=== PATIENT | male | born 1970 | race Caucasian/White ===

== ENCOUNTER 2016-08-21 04:34 | Observation (INO) | payer MEDICAID, OTHER ==
[~2016-08-21] VITALS: Ht 180.3 cm; Wt 65.0 kg
[2016-08-21] VITALS (8 sets, daily range): BP systolic 130–160; BP diastolic 82–100; PULSE 68–102; RESP 18–22; TEMP 96.9–98.3; O2SAT 95–100
[~2016-08-21 04:34] MED LIST: DIAZ5 PO; DILA4TAB10 PO; DOXY100T PO; SOMA350T PO; VENTAER INH
[2016-08-21] MEDS ORDERED: KETOROLAC TROMETHAMINE 60 MG/2 ML (IM) VIAL IM ONE (05:15)
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
--- NOTE | 2016-08-21 05:58 | RADRPT ---
EXAM DATE/TIME: 08/21/2016 05:34 [facility] COMPARISON: No previous studies available for comparison. INDICATIONS : Chest pain. MEDICAL HISTORY : None. SURGICAL HISTORY : None. ENCOUNTER: Initial ACUITY: 1 day PAIN SCORE: 5/10 LOCATION: Bilateral chest FINDINGS: A single view of the chest demonstrates the lungs to be symmetrically aerated without evidence of mas s, infiltrate or effusion. The cardiomediastinal contours are unremarkable. Osseous structures are intact. CONCLUSION: No acute disease. Timothy Trujillo MD on August 21, 2016 at 5:56 Board Certified Radiologist. This report was verified electronically.
--- NOTE | 2016-08-21 06:03 | RADRPT ---
EXAM DATE/TIME: 08/21/2016 05:35 [facility] COMPARISON: No previous studies available for comparison. INDICATIONS : Left shoulder pain. No known injury. MEDICAL HISTORY : None. SURGICAL HISTORY : None. ENCOUNTER: Initial ACUITY: >1 year PAIN SCORE: 10/10 LOCATION: Left upper extremity FINDINGS: AP views of the left shoulder were obtained with internal and external rotation as well as Y. view of scapula. This demonstrates patchy sclerosis and lucency involving the upper humeral head. The glenoh umeral joint and acromioclavicular joint are intact. The soft tissues are unremarkable. CONCLUSION: Abnormal appearance of the upper humeral head with sclerosis and patchy lucency. This is nonspecific and could be the sequelae of remote trauma. Comparison with old outside studies would be helpful. Timothy Trujillo MD on August 21, 2016 at 6:00 Board Certified Radiologist. This report was verified electronically.
[2016-08-21] MEDS ORDERED: VANCOMYCIN INJ 1,000 MG in SODIUM CHLOR 0.9% 250 ML INJ 250 ML IV ONE (06:30)
[2016-08-21] MEDS ORDERED: SODIUM CHLOR 0.9% 1000 ML INJ 1,000 ML IV ONE ×2 (06:30→07:30)
[2016-08-21] MEDS ORDERED: MORPHINE SULFATE 4 MG/ML INJ IV PUSH ONE (06:30)
[2016-08-21] MEDS ORDERED: PIPERACIL-TAZO 3.375 GM PREMIX 50 ML IV ONE (06:30)
[2016-08-21] MEDS ORDERED: ONDANSETRON HCL 4 MG/2 ML VIAL IV ONE (06:30)
[2016-08-21 06:50] LABS: AUTOMATED NEUTROPHIL # 8.4 TH/MM3 (1.8-7.7); BASOPHIL % 0.4 % (0.0-2.0); EOSINOPHIL # 0.1 TH/MM3 (0-0.4); EOSINOPHIL % 0.6 % (0.0-4.0); HEMATOCRIT 35.4 % (39.0-51.0); HEMO FLAGS DIFF FINAL; LYMPH % 12.6 % (9.0-44.0); LYMPHOCYTE # 1.3 TH/MM3 (1.0-4.8); MEAN CELL VOLUME 88.2 FL (80.0-100.0); MEAN CORPUSCULAR HEMOGLOBIN 30.8 PG (27.0-34.0); MEAN CORPUSCULAR HGB CONC 34.9 % (32.0-36.0); MONO % 6.3 % (0.0-8.0); NEUT % 80.1 % (16.0-70.0); PLATELET COUNT 152 TH/MM3 (150-450); RED BLOOD COUNT 4.02 MIL/MM3 (4.50-5.90); RED CELL DISTRIBUTION WIDTH 16.4 % (11.6-17.2); WHITE BLOOD COUNT 10.5 TH/MM3 (4.0-11.0)
[2016-08-21 06:59] LABS: ALT (GPT) 16 U/L (12-78); ANION GAP 8 MEQ/L (5-15); AST (GOT) 15 U/L (15-37); BICARBONATE 25.3 MEQ/L (21.0-32.0); BLOOD UREA NITROGEN 13 MG/DL (7-18); CHLORIDE 104 MEQ/L (98-107); GLOMERULAR FILTRATION RATE 91 ML/MIN (>89); POTASSIUM 3.4 MEQ/L (3.5-5.1); SODIUM (NA) 137 MEQ/L (136-145)
[2016-08-21 07:01] LABS: ALKALINE PHOSPHATASE 53 U/L (45-117); TOTAL BILIRUBIN ADULT 0.6 MG/DL (0.2-1.0)
[2016-08-21 07:05] LABS: APTT (PATIENT) 29.2 SEC (24.3-30.1); INTERNATIONAL NORMALIZED RATIO 0.9 RATIO; PROTHROMBIN TIME - PATIENT 10.2 SEC (9.8-11.6)
--- NOTE | 2016-08-21 07:06 | RADRPT ---
EXAM DATE/TIME: 08/21/2016 06:32 This report includes an Addendum and supersedes previous reports for this exam. [facility] COMPARISON: No previous studies available for comparison. INDICATIONS : Left shoulder pain. Patient states he's been having pain for over a year. RADIATION DOSE: 15.33 CTDIvol (mGy) MEDICAL HISTORY : None SURGICAL HISTORY : None. ENCOUNTER: Initial ACUITY: >1 yr PAIN SCALE: 8/10 LOCATION: Left shoulder. TECHNIQUE: Volumetric scanning of the shoulder was performed. Using automated exposure control and adjustment o f the mA and/or kV according to patient size, radiation dose was kept as low as reasonably achievable to obtain optimal diagnostic quality images. FINDINGS: BONES: No evidence of fracture. Alignment is within normal limits. Chronic degenerative type changes are no gerardo involving the upper anterior humerus with multiple apparent subchondral cysts with sclerotic mary ins. There is patchy sclerosis as well. JOINTS: Minimal degenerative changes are present in the glenohumeral joint with slight spurring. SOFT TISSUES: Muscles, tendons, and neurovascular structures are grossly unremarkable. The integrity of the rotato r cuff tendons cannot be reliably evaluated on CT without intra-articular contrast. No evidence of m ass, organized fluid collection, or foreign body. CONCLUSION: 1. Chronic changes involving the humeral head with subchondral cyst formation and sclerosis. 2. Mild degenerative change in the glenohumeral joint. Timothy Trujillo MD on August 21, 2016 at 6:50 Board Certified Radiologist. This report was verified electronically. ADDENDUM: There is a small amount of air seen directly adjacent to the proximal humeral metaphysis. This is fel t to be just inferior to the joint space. I see no radiopaque foreign body. Differential diagnostic c onsiderations would include trauma with overlying wound versus infection with gas producing organisms . No abscess observed. Diego Vidal Jr., MD on August 21, 2016 at 7:45 Board Certified Radiologist. This report was verified electronically.
[2016-08-21] MEDS ORDERED: BISACODYL 10 MG SUPP RECTAL PRN (08:15)
[2016-08-21] MEDS ORDERED: KETOROLAC TROMETHAMINE 30 MG/ML (IVP) VIAL IVP PRN (08:15)
[2016-08-21] MEDS ORDERED: NALOXONE HCL 0.4 MG/ML AMP IV PRN (08:15)
[2016-08-21] MEDS ORDERED: ACETAMINOPHEN 325 MG TAB PO PRN ×2 (08:15)
[2016-08-21] MEDS ORDERED: ONDANSETRON HCL 4 MG/2 ML VIAL IVP PRN (08:15)
[2016-08-21] MEDS ORDERED: SODIUM CHLORIDE 0.9% FLUSH 10 ML FLUSH IV FLUSH PRN (08:15)
[2016-08-21] MEDS ORDERED: CLINDAMYCIN INJ 900 MG in SODIUM CHLORIDE 0.9% INJ 100 ML IV ONE (08:30)
[2016-08-21 08:34] LABS: LACTIC ACID GHOST NOT REPORTABLE
[2016-08-21] MEDS ORDERED: POTASSIUM CHLOR 20 MEQ PREMIX 100 ML IV ONE (09:00)
[2016-08-21] MEDS: SODIUM CHLORIDE 0.9% FLUSH 10 ML FLUSH IV FLUSH SCH ×2 (09:00→21:20)
[2016-08-21] MEDS: DOCUSATE SODIUM 100 MG CAP PO SCH ×2 (09:00→21:20)
[2016-08-21] MEDS ORDERED: Vancomycin Consult Pharmacy 1 EA OTHER SCH (09:30)
[2016-08-21] MEDS ORDERED: CLINDAMYCIN INJ 900 MG in SODIUM CHLORIDE 0.9% INJ 100 ML IV SCH (09:30)
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
[2016-08-21] MEDS: SODIUM CHLOR 0.9% 1000 ML INJ 1,000 ML IV SCH ×2 (10:01→23:18)
--- NOTE | 2016-08-21 10:24 | EKG ---
Date Performed: 08/21/2016 Time Performed: 05:02:22 PTAGE: 46 years EKG: SINUS TACHYCARDIA ABNORMAL RHYTHM ECG NO PREVIOUS TRACING DOCTOR: Garth Day Interpretating Date/Time 08/21/2016 10:19:26
--- NOTE | 2016-08-21 10:35 | PD ---
Data Data Last Documented VS Vital Signs Date Time Temp Pulse Resp B/P Pulse Ox O2 Delivery O2 Flow Rate FiO2 08/21/16 07:54 18 08/21/16 07:53 86 142/90 99 Room Air 08/21/16 04:35 98.3 Orders Ketorolac Inj (Toradol Inj) (08/21/16 05:15) Shoulder, Complete (>2vws) (08/21/16 05:24) Ice/Cold Pack (08/21/16 05:24) Chest, Single Ap (08/21/16 05:24) Complete Blood Count With Diff (08/21/16 06:16) Comprehensive Metabolic Panel (08/21/16 06:16) Prothrombin Time / Inr (Pt) (08/21/16 06:16) Act Partial Throm Time (Ptt) (08/21/16 06:16) Blood Culture (08/21/16 06:16) C-Reactive Protein (Crp) (08/21/16 06:16) Westergren Sedimentation Rate (08/21/16 06:16) Iv Access Insert/Monitor (08/21/16 06:16) Ecg Monitoring (08/21/16 06:16) Oximetry (08/21/16 06:16) Lactic Acid Sepsis Protocol (08/21/16 06:16) Ct Shoulder W/O Contrast (08/21/16 ) Sodium Chlor 0.9% 1000 Ml Inj (Ns 1000 M (08/21/16 06:30) Ondansetron Inj (Zofran Inj) (08/21/16 06:30) Morphine Inj (Morphine Inj) (08/21/16 06:30) Piperacil-Tazo 3.375 Gm Premix (Zosyn 3. (08/21/16 06:30) Vancomycin Inj (Vancomycin Inj) (08/21/16 06:30) Electrocardiogram (08/21/16 05:02) Sodium Chlor 0.9% 1000 Ml Inj (Ns 1000 M (08/21/16 07:30) Clindamycin Inj (Cleocin Inj) (08/21/16 08:30) Magnesium (Mg) (08/21/16 08:14) Basic Metabolic Panel (Bmp) (08/22/16 06:00) Complete Blood Count With Diff (08/22/16 06:00) Magnesium (Mg) (08/22/16 06:00) ^ Other Nursing Orders (08/21/16 08:14) Potassium Chlor 20 Meq Premix (Kcl 20 Me (08/21/16 09:00) Place In Observation (08/21/16 ) Vital Signs (Adult) Q4H (08/21/16 08:14) Activity Oob With Assistance (08/21/16 08:14) Intake + Output SAMINA.QSHIFT (08/21/16 08:14) Diet Npo (08/21/16 Breakfast) Sodium Chlor 0.9% 1000 Ml Inj (Ns 1000 M (08/21/16 09:00) Sodium Chloride 0.9% Flush (Ns Flush) (08/21/16 08:15) Sodium Chloride 0.9% Flush (Ns Flush) (08/21/16 09:00) Acetaminophen (Tylenol) (08/21/16 08:15) Ondansetron Inj (Zofran Inj) (08/21/16 08:15) Bisacodyl Supp (Dulcolax Supp) (08/21/16 08:15) Docusate Sodium (Colace) (08/21/16 09:00) Resp Oxygen Tyrel C Titrat 1-4 L (08/21/16 ) Pt Request For Service (08/21/16 08:14) Case Management Consult (08/21/16 08:14) Scd Bilateral/Knee High SAMINA.BID (08/21/16 08:14) Acetaminophen (Tylenol) (08/21/16 08:15) Ketorolac Inj (Toradol Inj) (08/21/16 08:15) Ketorolac Inj (Toradol Inj) (08/21/16 08:15) Morphine Inj (Morphine Inj) (08/21/16 08:15) Naloxone Inj (Narcan Inj) (08/21/16 08:15) Drug Screen, Random Urine (08/21/16 08:14) ^ Other Nursing Orders (08/21/16 08:14) Admit Order (Ed Use Only) (08/21/16 08:25) Labs Laboratory Tests Test 08/21/16 06:25 White Blood Count 10.5 TH/MM3 Red Blood Count 4.02 MIL/MM3 Hemoglobin 12.4 GM/DL Hematocrit 35.4 % Mean Corpuscular Volume 88.2 FL Mean Corpuscular Hemoglobin 30.8 PG Mean Corpuscular Hemoglobin 34.9 % Concent Red Cell Distribution Width 16.4 % Platelet Count 152 TH/MM3 Mean Platelet Volume 9.6 FL Neutrophils (%) (Auto) 80.1 % Lymphocytes (%) (Auto) 12.6 % Monocytes (%) (Auto) 6.3 % Eosinophils (%) (Auto) 0.6 % Basophils (%) (Auto) 0.4 % Neutrophils # (Auto) 8.4 TH/MM3 Lymphocytes # (Auto) 1.3 TH/MM3 Monocytes # (Auto) 0.7 TH/MM3 Eosinophils # (Auto) 0.1 TH/MM3 Basophils # (Auto) 0.0 TH/MM3 CBC Comment DIFF FINAL Differential Comment Erythrocyte Sedimentation Rate 62 mm/hr Prothrombin Time 10.2 SEC Prothromb Time International 0.9 RATIO Ratio Activated Partial 29.2 SEC Thromboplast Time Sodium Level 137 MEQ/L Potassium Level 3.4 MEQ/L Chloride Level 104 MEQ/L Carbon Dioxide Level 25.3 MEQ/L Anion Gap 8 MEQ/L Blood Urea Nitrogen 13 MG/DL Creatinine 0.89 MG/DL Estimat Glomerular Filtration 91 ML/MIN Rate Random Glucose 172 MG/DL Lactic Acid Level 2.4 mmol/L Calcium Level 8.8 MG/DL Magnesium Level 2.1 MG/DL Total Bilirubin 0.6 MG/DL Aspartate Amino Transf 15 U/L (AST/SGOT) Alanine Aminotransferase 16 U/L (ALT/SGPT) Alkaline Phosphatase 53 U/L C-Reactive Protein 6.00 MG/DL Total Protein 7.7 GM/DL Albumin 3.0 GM/DL [facility] Supervised Visit with FAUSTO: Yes Narrative Course I took over care of this patient from Dr. Lea. He's 46-year-old male who has a remote history of IV drug use. He is reporting severe left shoulder pain. He has pain on exam out of proportion to his physical exam findings. CT was performed which demonstrates a small pocket of air inferior to the joint. His inflammatory markers are elevated but he is nontoxic appearing. I spoke to Dr. Marino was on-call for orthopedics and requested that the patient have an arthrocentesis performed by interventional radiology. Pt. was started on broad spectrum antibiotics. I spoke to Dr. Vidal in interventional radiology who will perform the procedure. Physician Communication Physician Communication Discussed with Dr. Muhammad, Dr. Vidal and Dr. Marino Diagnosis Primary Impression: Left shoulder pain Qualified Code: M25.512 - Acute pain of left shoulder Admitting Information Admitting Physician Requests: Admit Romi Coelho MD August 21, 2016 10:35
[2016-08-21] MEDS: MORPHINE SULFATE 4 MG/ML INJ IV PRN ×2 (10:50→21:19)
[2016-08-21] MEDS: NICOTINE 21 MG/24 HR PATCH T-DERMAL SCH (11:51)
[2016-08-21] MEDS: PIPERACIL-TAZO 3.375 GM PREMIX 50 ML IV SCH ×2 (11:53→18:21)
[2016-08-21] MEDS: KETOROLAC TROMETHAMINE 30 MG/ML (IVP) VIAL IVP PRN ×2 (13:35→23:01)
--- NOTE | 2016-08-21 15:07 | PD.RAD ---
Post Procedure Progress Note Pre Procedure Diagnosis: (1) Left shoulder pain Post Procedure Diagnosis: (1) Left shoulder pain Procedure Date: August 21, 2016 Supervising Radiologist: Diego Vidal JR Proceduralist/Assist: RT Dee(R)() Anesthesia: Local Plan of Activity Patient to Unit: Nursing Unit Patient Condition: Good Additional Comments: Left shoulder aspiration yielded no fluid. 5ml sterile saline instilled into joint. 0.1ml returned. Sent for micro evaluation. See PACS Report for procedural detail/treatment Jr. Young,Diego De Leon MD August 21, 2016 15:07
[2016-08-21 16:46] LABS: WBC, SYNOVIAL FLUID 1 /MM3 (0-200)
[2016-08-21] MEDS: CLINDAMYCIN INJ 900 MG in SODIUM CHLORIDE 0.9% INJ 100 ML IV SCH (17:43)
--- NOTE | 2016-08-21 17:43 | RADRPT ---
EXAM DATE/TIME: 08/21/2016 14:51 [place] COMPARISON: No previous studies available for comparison. INDICATIONS : Patient with left shoulder pain with concern for septic arthritis and in need of joint aspiration. MEDICAL HISTORY : 1.Methamphetamine use. 2.Chronic leg pain 3.Tobacco abuse. 4.Pneumonia. SURGICAL HISTORY : Patient denies any past surgery. ENCOUNTER: Initial ACUITY: 4 - 6 days PAIN SCORE: 7/10 LOCATION: Left Shoulder FLUORO TIME: 0.81 minutes IMAGE SERIES: 0 DEVICE(S): 22 gauge needle was placed into the left shoulder joint. RESPONSE: Pre procedure pain level was 7/10 FLUID: Total volume of1 cc of clear red fluid was removed. Fluid specimen was submitted to the lab for evaluation. PROCEDURE : 1. Fluoroscopically guided left shoulder aspiration. The risks, benefits and alternatives to the procedure were explained and verbal and written consent w as obtained. The site was prepped in sterile fashion. Full sterile technique was used, including ca p, mask, sterile gloves and gown and a large sterile sheet. Hand hygiene and 2% chlorhexidine and/or betadine/alcohol prep was utilized per protocol for cutaneous antisepsis. The skin and subcutaneous tissues were infiltrated with local anesthetic solution. <Under fluoroscopic control a 22 gauge spinal needle was passed into the left shoulder joint. Aspirat ion yielded no fluid. 5 mL of sterile saline was instilled into the joint. Aspiration yielded 0.1 mL. This was placed in culture media>> The patient tolerated the procedure well and there were no complications. CONCLUSION: Uncomplicated aspiration of the left shoulder as above. Diego Vidal Jr., MD on August 21, 2016 at 17:30 Board Certified Radiologist. This report was verified electronically.
[2016-08-21] MEDS: VANCOMYCIN 1,000 MG/NS 250 ML IV SCH ×2 (21:20)
[2016-08-22] VITALS: BP 160/100; PULSE 88; RESP 20; TEMP 97; O2SAT 99
[2016-08-22] MEDS: PIPERACIL-TAZO 3.375 GM PREMIX 50 ML IV SCH ×3 (00:30→14:05)
[2016-08-22] MEDS: CLINDAMYCIN INJ 900 MG in SODIUM CHLORIDE 0.9% INJ 100 ML IV SCH ×2 (01:53→09:29)
[2016-08-22] MEDS: MORPHINE SULFATE 4 MG/ML INJ IV PRN ×3 (01:54→16:24)
[2016-08-22 04:00] VITALS: BP 151/91; PULSE 85; RESP 20; TEMP 98; O2SAT 98
[2016-08-22] MEDS: KETOROLAC TROMETHAMINE 30 MG/ML (IVP) VIAL IVP PRN ×2 (05:58→11:41)
[2016-08-22 07:24] VITALS: BP 131/86; PULSE 84; RESP 18; TEMP 98.5; O2SAT 96
[2016-08-22] MEDS: VANCOMYCIN 1,000 MG/NS 250 ML IV SCH ×2 (08:08)
[2016-08-22] MEDS ORDERED: REMOVE OLD NICOTINE PATCH T-DERMAL SCH (09:00)
[2016-08-22] MEDS: SODIUM CHLORIDE 0.9% FLUSH 10 ML FLUSH IV FLUSH SCH (09:00)
[2016-08-22] MEDS: DOCUSATE SODIUM 100 MG CAP PO SCH (09:28)
[2016-08-22] MEDS: NICOTINE 21 MG/24 HR PATCH T-DERMAL SCH (09:29)
--- NOTE | 2016-08-22 10:06 | HHI.PR ---
Subjective Remarks Follow up left shoulder pain. Patient states it is very painful and throbbing with any movement, he states the Toradol works the best. Denies any chest pain, sob, fever or chills. Objective Vitals Vital Signs Date Time Temp Pulse Resp B/P Pulse Ox O2 Delivery O2 Flow Rate FiO2 08/22/16 07:24 98.5 84 18 131/86 96 08/22/16 04:00 98.0 85 20 151/91 98 08/22/16 00:00 97.0 88 20 160/100 99 08/21/16 23:08 96.9 87 22 160/100 99 08/21/16 20:38 21 08/21/16 16:00 97.9 80 19 156/91 99 08/21/16 11:36 98.0 68 20 156/95 100 08/21/16 11:17 73 18 157/94 98 Room Air I/O 08/21/16 08/21/16 08/21/16 08/22/16 08/22/16 08/22/16 07:00 15:00 23:00 07:00 15:00 23:00 Intake Total 400 ml Output Total 700 ml 1800 ml Balance -700 ml -1400 ml Intake Oral 400 ml Output Urine Total 700 ml 1800 ml # Voids 1 # Bowel Movements 0 Result Diagram: 08/21/1662408/21/16624 Imaging Last Impressions Shoulder X-Ray 08/21/16523 Signed Impressions: Service Date/Time: Sunday, August 21, 2016 05:35 - CONCLUSION: Abnormal appearance of the upper humeral head with sclerosis and patchy lucency. This is nonspecific and could be the sequelae of remote trauma. Comparison with old outside studies would be helpful. Timothy Trujillo MD Chest X-Ray 08/21/16523 Signed Impressions: Service Date/Time: Sunday, August 21, 2016 05:34 - CONCLUSION: No acute disease. Timothy Trujillo MD Upper Extremity CT 08/21/16 0000 Signed Impressions: Service Date/Time: Sunday, August 21, 2016 06:32 - CONCLUSION: 1. Chronic changes involving the humeral head with subchondral cyst formation and sclerosis. 2. Mild degenerative change in the glenohumeral joint. Timothy Trujillo MD ADDENDUM: There is a small amount of air seen directly adjacent to the proximal humeral metaphysis. This is felt to be just inferior to the joint space. I see no radiopaque foreign body. Differential diagnostic considerations would include trauma with overlying wound versus infection with gas producing organisms. No abscess observed. Diego Vidal Jr., MD Aspiration 08/21/16 0000 Signed Impressions: Service Date/Time: Sunday, August 21, 2016 14:51 - CONCLUSION: Uncomplicated aspiration of the left shoulder as above. Diego Vidal Jr., MD Objective Remarks GENERAL: SKIN: Warm and dry. HEAD: Atraumatic. Normocephalic. EYES: Pupils equal and round. No scleral icterus. No injection or drainage. ENT: No nasal bleeding or discharge. Mucous membranes pink and moist. NECK: Trachea midline. No JVD. CARDIOVASCULAR: Regular rate and rhythm. RESPIRATORY: No accessory muscle use. Clear to auscultation. Breath sounds equal bilaterally. GASTROINTESTINAL: Abdomen soft, non-tender, nondistended. Hepatic and splenic margins not palpable. MUSCULOSKELETAL: left shoulder edema. No obvious deformities. NEUROLOGICAL: Awake and alert. No obvious cranial nerve deficits. Motor grossly within normal limits. Normal speech. PSYCHIATRIC: Appropriate mood and affect; insight and judgment normal. Medications and IVs Current Medications Medications (Trade) Dose Ordered Sig/Rafael Route Start Time Stop Time Status Last Admin (NS 1000 ml Inj) 1,000 ml @ 70 mls/hr [id number] IV 08/21/16 09:00 08/21/16 10:01 (NS Flush) 2 ml UNSCH PRN IV FLUSH 08/21/16 08:15 (NS Flush) 2 ml BID IV FLUSH 08/21/16 09:00 08/21/16 21:20 (Tylenol) 650 mg Q4H PRN PO 08/21/16 08:15 (Zofran Inj) 4 mg Q6H PRN IVP 08/21/16 08:15 (Dulcolax Supp) 10 mg DAILY PRN RECTAL 08/21/16 08:15 (Colace) 100 mg Q12H PO 08/21/16 09:00 08/22/16 09:28 (Tylenol) 650 mg Q6H PRN PO 08/21/16 08:15 (Toradol Inj) 15 mg Q6H PRN IVP 08/21/16 08:15 08/26/16 08:14 (Toradol Inj) 30 mg Q6H PRN IVP 08/21/16 08:15 08/26/16 08:14 08/22/16 05:58 (Morphine Inj) 4 mg Q3H PRN IV 08/21/16 08:15 08/22/16 01:54 Naloxone HCl 0.4 mg 0.4 mg UNSCH PRN IV 08/21/16 08:15 Pharmacy Profile Note 0 ml @ 0 mls/hr UNSCH OTHER 08/21/16 09:30 (Zosyn 3.375 Gm Premix) 50 ml @ 100 mls/hr Q6H IV 08/21/16 12:30 08/22/16 05:57 (Habitrol 21 Mg Patch.24 Hr) 1 patch DAILY T-DERMAL 08/21/16 10:30 08/22/16 09:29 Miscellaneous Information 1 1 DAILY T-DERMAL 08/22/16 09:00 Clindamycin Phosphate 900 mg/ Sodium Chloride 106 ml @ 212 mls/hr Q8H IV 08/21/16 17:00 08/22/16 09:29 (Vancomycin Inj/ NS 250 ml Inj) 250 ml @ 250 mls/hr Q12H IV 08/21/16 20:00 08/22/16 08:08 Miscellaneous Information SPECIFIC LAB TO BE DRAWN:VANCOMYCIN TROUGH DATE TO... ONCE ONCE .XX 08/22/16 19:45 08/22/16 19:46 A/P Problem List: (1) Left shoulder pain ICD Code: M25.512 Status: Acute Assessment and Plan This is a 46 year old male with a history of chronic leg pain, amphetamine use and tobacco abuse. Left should pain CT shows small amount of air seen directly adjacent to the proximal humeral metaphysis which could be related to trauma or infection from gas producing organism concerning for a necrotizing infection. -IR consulted, joint aspiration completed, cultures pending -Consult ortho for recommendations, 1400 Dr Marino recommends outpatient PT, and FU in 2 weeks, no evidence of septic joint arthritis -Pain management with IV morphine and IV Toradol -Cont Vanco and Zosyn IV Elevated lactic acid 2.4-->.6, resolved -Cont to monitor Elevated BP, may be due to pain, but with pain medication no change in BP -Start lisinopril 5 mg, patient will need to follow up with pcp Hypokalemia K 3.4-->3.9 resolved -cont to trend Tobacco abuse, encouraged to quit, counseled. DVT prophylaxis: SCDs Discharge patient to home Condition on discharge: Stable Heart Healthy Diet as tolerated Ad Maren activity, Follow up with PCP for Out Patient PT Rx written: [place] 5/325 mg #20 tabs, Lisinopril 5mg daily Follow-up with primary care physician in 2-3 days Follow up Orthopedics, Dr. Marino in 2 week Patient is Stable to be D/C, no evidence of septic arthritis. Dr. Marino recommends outpatient PT and follow up with him in 2 weeks. Patient verbalizes understanding of plan and prescriptions given. Discharge Planning today Problem Qualifiers (1) Left shoulder pain: Qualified Code: M25.512 - Acute pain of left shoulder Noni Glover August 22, 2016 10:06
[2016-08-22 11:25] VITALS: BP 164/99; PULSE 80; RESP 16; TEMP 98.3; O2SAT 99
[2016-08-22 13:11] LABS: AUTOMATED NEUTROPHIL # 5.2 TH/MM3 (1.8-7.7); BASOPHIL % 0.5 % (0.0-2.0); EOSINOPHIL # 0.1 TH/MM3 (0-0.4); EOSINOPHIL % 1.4 % (0.0-4.0); HEMATOCRIT 35.8 % (39.0-51.0); HEMO FLAGS DIFF FINAL; LYMPH % 19.3 % (9.0-44.0); LYMPHOCYTE # 1.4 TH/MM3 (1.0-4.8); MEAN CELL VOLUME 90.2 FL (80.0-100.0); MEAN CORPUSCULAR HEMOGLOBIN 29.7 PG (27.0-34.0); MEAN CORPUSCULAR HGB CONC 32.9 % (32.0-36.0); MONO % 8.8 % (0.0-8.0); PLATELET COUNT 139 TH/MM3 (150-450); RED BLOOD COUNT 3.97 MIL/MM3 (4.50-5.90); WHITE BLOOD COUNT 7.4 TH/MM3 (4.0-11.0)
[2016-08-22 13:25] LABS: BICARBONATE 27.1 MEQ/L (21.0-32.0); MAGNESIUM 2.1 MG/DL (1.5-2.5); POTASSIUM 3.9 MEQ/L (3.5-5.1)
--- NOTE | 2016-08-22 13:34 | PD.CONS ---
cc: Danial Marino Jr., MD HPI Service Orthopedic Surgeons Consult Requested By Primary Care Physician Kwame Salter Admission Diagnosis shoulder pain Diagnoses: (1) Left shoulder pain Chief Complaint: left shoulder pain Past Family Social History Past Medical History As previously mentioned Past Surgical History Her to pick surgery involving left hip and left leg Allergies: Coded Allergies: No Known Allergies (Verified , 08/21/16) Active Ordered Medications Current Medications Medications (Trade) Dose Ordered Sig/Rafael Route Start Time Stop Time Status Last Admin (NS 1000 ml Inj) 1,000 ml @ 70 mls/hr [id number] IV 08/21/16 09:00 08/21/16 10:01 (NS Flush) 2 ml UNSCH PRN IV FLUSH 08/21/16 08:15 (NS Flush) 2 ml BID IV FLUSH 08/21/16 09:00 08/21/16 21:20 (Tylenol) 650 mg Q4H PRN PO 08/21/16 08:15 (Zofran Inj) 4 mg Q6H PRN IVP 08/21/16 08:15 (Dulcolax Supp) 10 mg DAILY PRN RECTAL 08/21/16 08:15 (Colace) 100 mg Q12H PO 08/21/16 09:00 08/22/16 09:28 (Tylenol) 650 mg Q6H PRN PO 08/21/16 08:15 (Toradol Inj) 15 mg Q6H PRN IVP 08/21/16 08:15 08/26/16 08:14 (Toradol Inj) 30 mg Q6H PRN IVP 08/21/16 08:15 08/26/16 08:14 08/22/16 11:41 (Morphine Inj) 4 mg Q3H PRN IV 08/21/16 08:15 08/22/16 11:42 Naloxone HCl 0.4 mg 0.4 mg UNSCH PRN IV 08/21/16 08:15 Pharmacy Profile Note 0 ml @ 0 mls/hr UNSCH OTHER 08/21/16 09:30 (Zosyn 3.375 Gm Premix) 50 ml @ 100 mls/hr Q6H IV 08/21/16 12:30 08/22/16 05:57 (Habitrol 21 Mg Patch.24 Hr) 1 patch DAILY T-DERMAL 08/21/16 10:30 08/22/16 09:29 Miscellaneous Information 1 1 DAILY T-DERMAL 08/22/16 09:00 Clindamycin Phosphate 900 mg/ Sodium Chloride 106 ml @ 212 mls/hr Q8H IV 08/21/16 17:00 08/22/16 09:29 (Vancomycin Inj/ NS 250 ml Inj) 250 ml @ 250 mls/hr Q12H IV 08/21/16 20:00 08/22/16 08:08 Miscellaneous Information SPECIFIC LAB TO BE DRAWN:VANCOMYCIN TROUGH DATE TO... ONCE ONCE .XX 08/22/16 19:45 08/22/16 19:46 Reported Meds & Active Scripts Active No Active Prescriptions or Reported Medications Family History Hypertension and hyperlipidemia Social History Admits to snorting methamphetamine, tobacco abuse. Does not drink Physical Exam Vital Signs Vital Signs Date Time Temp Pulse Resp B/P Pulse Ox O2 Delivery O2 Flow Rate FiO2 08/22/16 11:25 98.3 80 16 164/99 99 08/22/16 07:24 98.5 84 18 131/86 96 08/22/16 04:00 98.0 85 20 151/91 98 08/22/16 00:00 97.0 88 20 160/100 99 08/21/16 23:08 96.9 87 22 160/100 99 08/21/16 20:38 21 08/21/16 16:00 97.9 80 19 156/91 99 Physical Exam Alert awake and oriented x 3. No acute distress. Neck: No pain with any range of motion and neck. Pulmonary: Normal respiratory effort. Right upper extremity exam: splint in place. Intact sensation distally in median, ulnar, and radial nerve. Intact motor in anterior interosseous, posterior interosseous, and ulnar nerve. 2+ radial artery pulses. Good cap refill. Left upper extremity: Grossly neurovascularly intact. Patient is exquisitely tender around the entire shoulder girdle and proximal bicep. Painful attempted passive range of motion of the shoulder or elbow. He is tender along the entire forearm. There is no significant swelling or effusion around the shoulder or elbow. The skin is intact. There is no redness or erythema. Compartments are soft. Palpable radial artery pulses. Fingers are warm well perfused. Bilateral lower extremities: No deformities. Grossly neurovascularly intact. Nontender along bony anatomy. Full range of motion at the ankles, knees and hips. Laboratory Laboratory Tests Test 08/21/16 08/22/16 14:54 12:43 Synovial Fluid Color RED Synovial Fluid Appearance BLOODY Synovial Fluid WBC 1 Synovial Fluid RBC [id number] Synovial Fluid Neutrophils 87 Synovial Fluid Lymphocytes 11 Synovial Fluid Monocytes 1 Synovial Fluid Eosinophils 1 Synovial Fluid Crystals NONE White Blood Count 7.4 Red Blood Count 3.97 Hemoglobin 11.8 Hematocrit 35.8 Mean Corpuscular Volume 90.2 Mean Corpuscular Hemoglobin 29.7 Mean Corpuscular Hemoglobin 32.9 Concent Red Cell Distribution Width 16.0 Platelet Count 139 Mean Platelet Volume 9.6 Neutrophils (%) (Auto) 70.0 Lymphocytes (%) (Auto) 19.3 Monocytes (%) (Auto) 8.8 Eosinophils (%) (Auto) 1.4 Basophils (%) (Auto) 0.5 Neutrophils # (Auto) 5.2 Lymphocytes # (Auto) 1.4 Monocytes # (Auto) 0.7 Eosinophils # (Auto) 0.1 Basophils # (Auto) 0.0 CBC Comment DIFF FINAL Differential Comment Sodium Level 137 Potassium Level 3.9 Chloride Level 104 Carbon Dioxide Level 27.1 Anion Gap 6 Blood Urea Nitrogen 7 Creatinine 0.65 Estimat Glomerular Filtration 131 Rate Random Glucose 117 Calcium Level 8.6 Magnesium Level 2.1 Date/Time Procedure Status Source Growth 08/21/16 14:54 Gram Stain - Final Resulted Fluid Synovial Fluid 08/21/16 14:54 Body Fluid Culture - Preliminary Resulted Fluid Synovial Fluid NO GROWTH IN 24 HOURS. 08/21/16 06:30 Aerobic Blood Culture - Preliminary Resulted Blood Peripheral NO GROWTH IN 1 DAY 08/21/16 06:30 Anaerobic Blood Culture - Preliminary Resulted Blood Peripheral NO GROWTH IN 1 DAY Result Diagram: 08/22/16 1243 08/22/16 1243 Imaging Last 72 hours Impressions Shoulder X-Ray 08/21/16 0524 Signed Impressions: Service Date/Time: Sunday, August 21, 2016 05:35 - CONCLUSION: Abnormal appearance of the upper humeral head with sclerosis and patchy lucency. This is nonspecific and could be the sequelae of remote trauma. Comparison with old outside studies would be helpful. Timothy Trujillo MD Chest X-Ray 08/21/16 0524 Signed Impressions: Service Date/Time: Sunday, August 21, 2016 05:34 - CONCLUSION: No acute disease. Timothy Trujillo MD Upper Extremity CT 08/21/16 0000 Signed Impressions: Service Date/Time: Sunday, August 21, 2016 06:32 - CONCLUSION: 1. Chronic changes involving the humeral head with subchondral cyst formation and sclerosis. 2. Mild degenerative change in the glenohumeral joint. Timothy Trujillo MD ADDENDUM: There is a small amount of air seen directly adjacent to the proximal humeral metaphysis. This is felt to be just inferior to the joint space. I see no radiopaque foreign body. Differential diagnostic considerations would include trauma with overlying wound versus infection with gas producing organisms. No abscess observed. Diego Vidal Jr., MD Aspiration 08/21/16 0000 Signed Impressions: Service Date/Time: Sunday, August 21, 2016 14:51 - CONCLUSION: Uncomplicated aspiration of the left shoulder as above. Diego Vidal Jr., MD Assessment & Plan Assessment and Plan 46-year-old male with a remote history of iv drug abuse presents with a four- day history of left shoulder pain. He reports falling a few days prior and catching himself on his left shoulder. Left shoulder pain has progressively worsened since that episode. He is grossly neurovascularly intact. His pain radiates from anterolateral lateral deltoid to his dorsal hand and is associated with burning and tingling. His pain is out of proportion and does not relate to any objective findings. He has pain with range of motion and hyperesthesia around the deltoid all the way distal to mid arm. X-ray examination reveal sclerosis and patchy area lucency in the humeral head consistent with previous trauma. Shoulder aspiration negative for septic arthritis. His exam is consistent with adhesive capsulitis versus cervical radiculopathy. I recommend physical therapy for progressive slow left shoulder range of motion and stretching. No need for any surgical intervention at this time. Follow-up outpatient in 2 weeks. Danial Marino Jr., MD August 22, 2016 13:34
[2016-08-22] MEDS: SODIUM CHLOR 0.9% 1000 ML INJ 1,000 ML IV SCH (14:06)
[2016-08-22] MEDS ORDERED: LISINOPRIL 5 MG TAB PO ONE (14:30)
[2016-08-22] MEDS ORDERED: HYDR-3516 PO (14:56)
[2016-08-22] MEDS ORDERED: LISI-519 PO (14:56)
[2016-08-22 15:52] VITALS: BP 164/84; PULSE 81; RESP 19; TEMP 98.6; O2SAT 97
[2016-08-22] MEDS ORDERED: PHARMACY ORDERED LAB ONE (19:45)
[2016-08-23] MEDS ORDERED: LISINOPRIL 5 MG TAB PO SCH (09:00)
== END 2016-08-22 17:16 | disposition home or self-care (01) ==
LOC: NEPE 04:34 → NEDA 08:27 → NEPHCDU 11:30
PROVIDERS: ADMIT Internal Medicine; ATTEND Internal Medicine
DX: M25.512 Pain in left shoulder (principal); R74.0 Nonspecific elevation of levels of transaminase and lactic acid dehydrogenase [LDH]; R03.0 Elevated blood-pressure reading, without diagnosis of hypertension; M79.606 Pain in leg, unspecified; G89.29 Other chronic pain; F17.200 Nicotine dependence, unspecified, uncomplicated; E87.6 Hypokalemia; F15.90 Other stimulant use, unspecified, uncomplicated; Z91.81 History of falling
CPT/HCPCS: 20610; 71010; 73030; 73200; 77002; 80048; 80053; 83605; 83735; 84157; 85025; 85610; 85652; 85730; 86140; 87040; 87070; 87205; 89051; 89060; 93005; 96365; 96367; 96372; 96375; 97161; 99285; G0378; G8987; G8988; J1885; J2270; J2405; J2543; J3370; J3480; J7030; J7050